=== PATIENT | male | born 1985 | race Two or more races ===

== ENCOUNTER 2016-10-02 16:07 | Emergency (ER) | payer OTHER ==
[2016-10-02 16:11] VITALS: BP 112/64; BMI 29.9
[2016-10-02] MEDS ORDERED: ACETAMINOPHEN 500 MG TABLET (FP) PO ONE (17:02)
[2016-10-02] MEDS ORDERED: ONDANSETRON *ODT* 4 MG TABLET SL ONE (17:03)
--- NOTE | 2016-10-02 17:05 | PDOC ---
History of Present Illness - General Chief Complaint: Cold Symptoms Stated Complaint: COLD SYMPTOMS Time Seen by Provider: 10/02/16 16:23 History Source: Patient Exam Limitations: No Limitations - History of Present Illness Initial Comments: 10/02/16 17:12 My chief complaint: Fever, generalized body aches, sore throat, nasal congestion or 3 days, nausea and vomiting today 10/02/16 17:41 History of present illness: Patient is a 31-year-old male with no significant medical history here today complaining of fever with intermittent body aches and sore throat with nasal congestion 3 days with nausea and vomiting once today. Patient denies any difficulty breathing or swallowing or any abdominal pain. Patient denies any recent travel or any sick contacts. Patient denies headache however has generalized body aches. His appetite has been decreased today is drinking fluids. 10/02/16 17:43 10/02/16 18:17 10/02/16 18:17 10/02/16 20:06 Timing/Duration: intermittent (for 3 days) Severity: moderate Associated Symptoms: reports: fever/chills (intermittent for 3 days ), nausea/ vomiting, other (sore throat) Past History - Past Medical History Allergies/Adverse Reactions: Allergies Allergy/AdvReac Type Severity Reaction Status Date / Time No Known Allergies Allergy Verified 10/02/16 16:10 Home Medications: Ambulatory Orders NK [No Known Home Medication] 10/02/16 - Psycho/Social/Smoking Cessation Hx Suicidal Ideation: No Smoking History: Never smoked Review of Systems - Review of Systems Able to Perform ROS?: Yes Constitutional: Yes: Chills, Fever HEENTM: Yes: Nose Congestion, Throat Pain Respiratory: No: Symptoms reported Cardiac (ROS): No: Symptoms Reported ABD/GI: Yes: Nausea, Vomiting (once today ) : No: Symptoms Reported Musculoskeletal: Yes: Other (generalized muscularskeletal pain ) Integumentary: No: Symptoms Reported Neurological: No: Symptoms reported *Physical Exam - Vital Signs Last Vital Signs Temp Pulse Resp BP Pulse Ox 102.9 F H 111 H 20 112/64 97 10/02/16 16:10 10/02/16 16:10 10/02/16 16:10 10/02/16 16:10 10/02/16 16:10 - Physical Exam General Appearance: Yes: Appropriately Dressed HEENT: positive: TMs Normal, Pharyngeal Erythema, Tonsillar Erythema (with no uvular deviation ), Nasal Congestion. negative: Tonsillar Exudate, Rhinorrhea, Sinus Tenderness Neck: negative: Lymphadenopathy (R), Lymphadenopathy (L) Respiratory/Chest: positive: Lungs Clear, Normal Breath Sounds. negative: Chest Tender, Respiratory Distress Cardiovascular: positive: Regular Rhythm, Regular Rate, S1, S2 Gastrointestinal/Abdominal: positive: Normal Bowel Sounds, Soft. negative: Tender, Organomegaly, Distended, Guarding, Rebound, Tenderness, Hepatomegaly, Spleenomegaly Integumentary: positive: Normal Color Neurologic: positive: Fully Oriented, Alert, Normal Response, Responsive ED Treatment Course - LABORATORY CBC & Chemistry Diagram: 10/02/16 18:20 10/02/16 18:20 Medical Decision Making - Medical Decision Making 10/02/16 17:43 Patient is a 31-year-old male with no significant medical history here today complaining of fever with intermittent body aches and sore throat with nasal congestion 3 days with nausea and vomiting once today. Patient denies any difficulty breathing or swallowing or any abdominal pain. Patient denies any recent travel or any sick contacts. Patient denies headache however has generalized body aches. His appetite has been decreased today is drinking fluids. r/o influenza A or B r/o strep tonsillitis PLAN: throat C & S rapid negative influenza A & B acetaminophen 1000 mg po now zofran 4 mg sl now 10/02/16 18:20 ibuprofen 600 mg po now cbc with diff cmp lactic acid ua Laboratory Tests 10/02/16 10/02/16 18:20 18:20 WBC 16.4 H RBC 4.77 Hgb 13.0 Hct 39.2 MCV 82.1 MCHC 33.2 RDW 13.7 Plt Count 265 MPV 7.5 Neutrophils % 86.3 H Lymphocytes % 9.4 Monocytes % 3.8 Eosinophils % 0.1 Basophils % 0.4 Anion Gap 10 Random Glucose 94 Laboratory Tests 10/02/16 10/02/16 10/02/16 18:20 18:20 18:20 Potassium 3.8 Anion Gap 10 BUN 16 Creatinine 1.1 Creat Clearance w eGFR > 60 Random Glucose 94 Lactic Acid 0.9 Calcium 8.8 Total Bilirubin 0.8 AST 32 ALT 43 Alkaline Phosphatase 74 Total Protein 7.3 Albumin 4.1 10/02/16 18:54 ibuprofen 600 mg po now 10/02/16 19:31 temp is 99.4 10/02/16 19:31 10/02/16 20:02 Feeling much better will discharge patient to home with instructions to come back if symptoms worsen or new symptoms develop And to take acetaminophen every 4 hours and ibuprofen every 6 hours if temp as directed 10/02/16 20:06 Laboratory Tests 10/02/16 18:40 Urine Color Ltyellow Urine Appearance Clear Urine pH 5.0 Ur Specific [place] Pending Urine Protein Negative Urine Glucose (UA) Negative Urine Ketones Negative Urine Blood Negative Urine Nitrite Negative Urine Bilirubin Negative Urine Urobilinogen Negative Ur Leukocyte Esterase Negative 10/02/16 23:10 *DC/Admit/Observation/Transfer Diagnosis at time of Disposition: Viral syndrome - Discharge Dispostion Disposition: HOME Condition at time of disposition: Stable - Referrals Referrals: Christopher Ramirez [Primary Care Provider] - - Patient Instructions Additional Instructions: Give a lot a fluids and rest Return to emergency room if symptoms worsen or new symptoms develop Take acetaminophen as needed as directed by manufacture every 4 hours if fever and ibuprofen as needed as directed by manufacture every 6 hours as needed Patient voiced understanding of discharge instructions and all questions were answered Jose mucho lquido y descansar Regreso a la brown de emergencias si los sntomas empeoran o se desarrollan nuevos sntomas. [place] acetaminofeno segn sea necesario segn las instrucciones de la fabrica cada 4 horas si fiebre e ibuprofeno alpesh sea necesario segn las indicaciones de la fabricacin cada 6 horas segn sea necesario Comprensin del paciente sobre las instrucciones de jinny y todas las preguntas fueron contestadas
[2016-10-02] MEDS ORDERED: ACETAMINOPHEN 500 MG TABLET (FP) ONE (17:07)
[2016-10-02] MEDS ORDERED: ONDANSETRON *ODT* 4 MG TABLET ONE (17:08)
[2016-10-02 17:51] VITALS: PULSE 90
[2016-10-02] MEDS ORDERED: IBUPROFEN 600 MG TABLET (FP) PO ONE ×2 (18:16→18:17)
[2016-10-02 18:30] LABS: BASOPHIL 0.4 % (0-2.0); EOSINOPHIL 0.1 % (0-4.5); MCH 27.3 pg (25.7-33.7); MCHC 33.2 g/dl (32.0-35.9); MEAN CELL VOLUME 82.1 fl (80-96); MEAN PLT VOLUME 7.5 fl (7.5-11.1); NEUTROPHILS 86.3 % (42.8-82.8); PLATELET COUNT 265 K/MM3 (134-434); RDW 13.7 % (11.9-15.9); WHITE BLOOD COUNT 16.4 K/mm3 (4.0-10.0)
[2016-10-02 18:47] LABS: CALCIUM 8.8 mg/dL (8.5-10.1); COCKROFT - GAULT 112.36; CREATININE 1.1 mg/dL (0.7-1.3)
[2016-10-02 18:51] LABS: ALBUMIN 4.1 g/dl (3.4-5.0); ALK PHOS 74 U/L (45-117); ANION GAP 10 (8-16); BILIRUBIN,TOTAL 0.8 mg/dL (0.2-1.0); CALCIUM 8.8 mg/dL (8.5-10.1); CO2 24 mmol/L (21-32); COCKROFT - GAULT 112.36; CREATININE 1.1 mg/dL (0.7-1.3); GLUCOSE,RANDOM 92 mg/dL (74-106); SGOT/AST 32 U/L (15-37); SGPT/ALT 43 U/L (12-78); TOT PROT 7.3 g/dl (6.4-8.2)
[2016-10-02 19:00] LABS: URINE APPEARANCE CLEAR; URINE BILIRUBIN NEGATIVE (NEGATIVE); URINE BLOOD NEGATIVE (NEGATIVE); URINE COLOR LTYELLOW; URINE GLUCOSE (UA) NEGATIVE (NEGATIVE); URINE KETONE NEGATIVE (NEGATIVE); URINE LEUK ESTERASE NEGATIVE (NEGATIVE); URINE NITRITE NEGATIVE (NEGATIVE); URINE PROTEIN NEGATIVE (NEGATIVE); URINE UROBILINOGEN NEGATIVE E.U./dl (0.2-1.0)
[2016-10-02 19:21] VITALS: TEMP 99.4
== END 2016-10-02 20:23 | disposition home or self-care (01) ==
LOC: JERFT 16:07
DX: B34.9 Viral infection, unspecified (principal)
CPT/HCPCS: 36415; 80048; 80053; 81003; 83605; 85025; 87070; 87430; 87804; 99281-25

== ENCOUNTER 2017-07-26 08:19 | Emergency (ER) | payer OTHER ==
[2017-07-26 08:27] VITALS: BP 133/71; PULSE 64; TEMP 98; BMI 32.3
[2017-07-26 10:09] LABS: BASO % 0.8 % (0-2.0); EOS % 3.1 % (0-4.5); HEMATOCRIT 40.2 % (35.4-49); HEMOGLOBIN 13.4 GM/dL (11.7-16.9); LYMPH % 26.2 % (8-40); MCH 27.8 pg (25.7-33.7); MCHC 33.4 g/dl (32.0-35.9); MEAN CELL VOLUME 83.2 fl (80-96); MEAN PLT VOLUME 7.5 fl (7.5-11.1); MONO % 10.3 % (3.8-10.2); NEUT % 59.6 % (42.8-82.8); PLATELET COUNT 273 K/MM3 (134-434); RBC 4.84 M/mm3 (4.00-5.60); WHITE BLOOD COUNT 9.1 K/mm3 (4.0-10.0)
[2017-07-26] MEDS ORDERED: KETOROLAC TROMETHAMINE 60 MG/2 ML VIAL IM ONE (10:27)
--- NOTE | 2017-07-26 10:27 | PDOC ---
History of Present Illness - General Chief Complaint: Pain Stated Complaint: JOINT PAIN Time Seen by Provider: 07/26/17 08:57 History Source: Patient Exam Limitations: No Limitations - History of Present Illness Initial Comments: 07/26/17 10:22 Patient is a 32-year-old male denies any significant medical history, currently no travel, presents with joint pain to hands and knees for 2 weeks. Patient reports fever last night tactile only. Denies any chest pain or shortness of breath, no sore throat, no ear pain. No runny nose. Denies any recent tick bites or bug bites. Does work outside in construction. Has not attempted to take any medication. Past Medical History: [Denies]. Allergies: No known allergies Medications: None Family History: Non-contributory Social History: Denies smoking, alcohol use, or IVDU Vital signs on arrival are [notable for pulse of 64] Review of Systems GENERAL/CONSTITUTIONAL: [No fever or chills. No weakness. No weight change.] HEAD, EYES, EARS, NOSE AND THROAT: [No change in vision. No ear pain or discharge. No sore throat. ] CARDIOVASCULAR: [No chest pain or shortness of breath.] RESPIRATORY: [No cough, wheezing, or hemoptysis.] GASTROINTESTINAL: [No nausea, vomiting, diarrhea or constipation. No rectal bleeding.] GENITOURINARY: [No dysuria, frequency, or change in urination.] MUSCULOSKELETAL: [Joint pain to hands and knees, no neck or back pain.] SKIN : [No rash or easy bruising.] NEUROLOGIC: [No headache, vertigo, loss of consciousness, or loss of sensation.] PSYCHIATRIC: [No depression or anxiety.] ENDOCRINE: [No increased thirst. No abnormal weight change.] HEMATOLOGIC/LYMPHATIC: [No anemia, easy bleeding, or history of blood clots.] ALLERGIC/IMMUNOLOGIC: [No hives or skin allergy. No latex allergy.] Physical Exam: GENERAL: [The patient is awake, alert, and fully oriented, in no acute distress. ] EYES: [Pupils equal, round and reactive to light, extraocular movements intact, sclera anicteric, conjunctiva clear.] ENT: [Ears normal, nares patent, oropharynx clear without exudates. Moist mucous membranes. No uvula deviation] NECK: [Normal range of motion, supple without lymphadenopathy, JVD, or masses.] LUNGS: [Breath sounds equal, clear to auscultation bilaterally. No wheezes, and no crackles.] HEART: [Regular rate and rhythm, normal S1 and S2 without murmur, rub or gallop. ] ABDOMEN: [Soft, nontender, normoactive bowel sounds. No guarding, no rebound. No masses. No bruising or abrasions] MUSCULOSKELETAL: [Normal range of motion, there is edema noted to thenar surface of bilateral hands, No clubbing or cyanosis. No cords, erythema, or tenderness. No CVA Tenderness ] NEUROLOGICAL: [Cranial nerves II through XII grossly intact. Normal speech, normal gait.] SKIN: [Warm, Dry, normal turgor, no rashes or lesions noted.] Past History - Past Medical History Allergies/Adverse Reactions: Allergies Allergy/AdvReac Type Severity Reaction Status Date / Time No Known Allergies Allergy Verified 07/26/17 08:24 Home Medications: Ambulatory Orders Naproxen [Naprosyn] 500 mg PO BID #30 tablet 07/26/17 COPD: No Other medical history: DENIES. - Suicide/Smoking/Psychosocial Hx Smoking History: Never smoked *Physical Exam - Vital Signs Last Vital Signs Temp Pulse Resp BP Pulse Ox 98 F 64 19 133/71 98 07/26/17 08:24 07/26/17 08:24 07/26/17 08:24 07/26/17 08:24 07/26/17 08:24 ED Treatment Course - LABORATORY CBC & Chemistry Diagram: 07/26/17 09:55 07/26/17 09:55 - ADDITIONAL ORDERS Additional order review: 07/26/17 09:55 Influenza Types A,B Antigen (ASHLEY) - Preliminary Nasopharyngeal Swab - Preliminary 07/26/17 09:55 RBC 4.84 MCV 83.2 MCHC 33.4 RDW 14.0 MPV 7.5 Neutrophils % 59.6 D Lymphocytes % 26.2 D Monocytes % 10.3 H D Eosinophils % 3.1 D Basophils % 0.8 Medical Decision Making - Medical Decision Making 07/26/17 10:27 A/P: Patient with joint pains for 2 weeks reports fever last night however afebrile upon arrival, no medication prior to arrival. I will give patient Toradol 60 mg IM, CBC, CMP, ESR, Lyme sent. 07/26/17 11:13 Laboratory Results - last 24 hr 07/26/17 07/26/17 09:55 09:55 WBC 9.1 D RBC 4.84 Hgb 13.4 Hct 40.2 MCV 83.2 MCH 27.8 MCHC 33.4 RDW 14.0 Plt Count 273 MPV 7.5 Neutrophils % 59.6 D Lymphocytes % 26.2 D Monocytes % 10.3 H D Eosinophils % 3.1 D Basophils % 0.8 Sodium 139 Potassium 4.4 Chloride 108 H Carbon Dioxide 23 Anion Gap 8 BUN 12 Creatinine 0.8 D Creat Clearance w eGFR > 60 Random Glucose 91 Calcium 8.9 Total Bilirubin 0.3 D AST 69 H D ALT 139 H D Alkaline Phosphatase 138 H D Total Protein 7.1 Albumin 3.6 07/26/17 11:13 Patient with no elevated white count, liver enzymes are mildly elevated. Patient feels better after Toradol injection, ESR is still pending patient will be referred to Dr. Silvestre for further workup, which can be performed as outpatient. ESR and Lyme are pending. I will discharge on anti-inflammatories, with strict follow-up. *DC/Admit/Observation/Transfer Diagnosis at time of Disposition: Joint pain Qualifiers: Joint pain location: unspecified Qualified Code(s): M25.50 - Pain in unspecified joint - Discharge Dispostion Disposition: HOME Condition at time of disposition: Stable Admit: No - Prescriptions Prescriptions: Naproxen [Naprosyn] 500 mg PO BID #30 tablet - Referrals Referrals: Christopher Ramirez [Primary Care Provider] - Dilshad Silvestre MD [Staff Physician] - - Patient Instructions Printed Discharge Instructions: DI for Joint Pain Additional Instructions: Please call today to make an appointment with Dr. Silvestre Any fever, increased pain, or any other concerns return to ER A copy of your labs were given to you to present to [facility] - Post Discharge Activity Forms/Work/School Notes: Back to Work
[2017-07-26 10:30] LABS: CALCIUM 8.9 mg/dL (8.5-10.1); CHLORIDE 108 mmol/L (98-107); POTASSIUM 4.4 mmol/L (3.5-5.1); SODIUM 139 mmol/L (136-145)
[2017-07-26] MEDS ORDERED: KETOROLAC TROMETHAMINE 60 MG/2 ML VIAL ONE (10:35)
[2017-07-26 10:36] LABS: ALBUMIN 3.6 g/dl (3.4-5.0); ALK PHOS 138 U/L (45-117); ANION GAP 8 (8-16); BILIRUBIN,TOTAL 0.3 mg/dL (0.2-1.0); BLOOD UREA NITROGEN 12 mg/dL (7-18); CO2 23 mmol/L (21-32); CREATININE 0.8 mg/dL (0.7-1.3); GLUCOSE,RANDOM 91 mg/dL (74-106); SGOT/AST 69 U/L (15-37); SGPT/ALT 139 U/L (12-78); TOT PROT 7.1 g/dl (6.4-8.2)
[2017-07-26 11:38] LABS: ERYTHROCYTE SEDIMENTATION RATE 13 mm/hr (0-10)
== END 2017-07-26 11:36 | disposition home or self-care (01) ==
LOC: JERFT 08:19
PROC: 3E0233Z Introduction of Anti-inflammatory into Muscle, Percutaneous Approach (ICD-10-PCS; principal; 2017-07-26)
DX: M25.562 Pain in left knee (principal); M25.561 Pain in right knee; M79.641 Pain in right hand; M79.642 Pain in left hand
CPT/HCPCS: 36415; 80053; 85025; 85651; 86618; 87804; 96372; 99281-25

== ENCOUNTER 2021-06-06 17:39 | Emergency (ER) | payer OTHER ==
[2021-06-06 17:53] VITALS: BP 148/96; PULSE 61; TEMP 97.5; BMI 32.3
[2021-06-06] MEDS ORDERED: DEXAMETHASONE LIQUID 0.5 MG/5 ML PO ONE (18:28)
[2021-06-06] MEDS ORDERED: FAMOTIDINE 20 MG TABLET PO ONE (18:29)
[2021-06-06] MEDS ORDERED: FAMOTIDINE 20 MG TABLET ONE (18:32)
[2021-06-06] MEDS ORDERED: DEXAMETHASONE SOD PHOSPHATE 10 MG/1 ML VIAL ONE (18:32)
== END 2021-06-06 20:39 | disposition home or self-care (01) ==
LOC: JERFT 17:39
DX: T78.3XXA Angioneurotic edema, initial encounter (principal)
CPT/HCPCS: 99283-25

== ENCOUNTER 2021-10-14 17:41 | Emergency (ER) | payer OTHER ==
[2021-10-14 17:55] VITALS: BP 117/75; PULSE 89; TEMP 98.9; BMI 33.9
[2021-10-14] MEDS ORDERED: IBUPROFEN 600 MG TABLET (FP) PO ONE ×2 (19:18→19:22)
== END 2021-10-14 19:44 | disposition home or self-care (01) ==
LOC: JER 17:41
DX: B34.9 Viral infection, unspecified (principal)
CPT/HCPCS: 0241U-QW; 99283-25

== ENCOUNTER 2023-04-04 16:01 | Emergency (ER) | payer OTHER ==
[2023-04-04 16:21] VITALS: BP 162/92; PULSE 93; RESP 18; TEMP 98.7; BMI 34.3
[2023-04-04] MEDS ORDERED: SODIUM CHLORIDE 0.9% 500 ML INFUS.BAG IV ONE (16:40)
[2023-04-04] MEDS ORDERED: FAMOTIDINE 20 MG/50 ML IVPB 20 MG/50 ML MG IVPB ONE ×2 (16:40→17:03)
[2023-04-04] MEDS ORDERED: ACETAMINOPHEN 1000 MG/100 ML BAG IVPB ONE (16:40)
[2023-04-04] MEDS ORDERED: ONDANSETRON 4 MG/2 ML VIAL IVPUSH ONE (16:40)
[2023-04-04] MEDS ORDERED: ACETAMINOPHEN INJECTION 100 ML IVPB ONE ×2 (17:02→17:44)
[2023-04-04] MEDS ORDERED: ONDANSETRON 4 MG/2 ML VIAL ONE (17:03)
[2023-04-04 17:15] LABS: BASO % 0.4 % (0-2.0); HEMATOCRIT 47.6 % (35.4-49); HEMOGLOBIN 16.1 GM/dL (11.7-16.9); LYMPH % 12.2 % (8-40); MCH 27.2 pg (25.7-33.7); MCHC 33.7 g/dl (32.0-35.9); MEAN CELL VOLUME 80.7 fl (80-96); MEAN PLT VOLUME 7.2 fl (7.5-11.1); NEUT % 77.4 % (42.8-82.8); PLATELET COUNT 283 10^3/uL (134-434); WHITE BLOOD COUNT 14.9 K/mm3 (4.0-10.0)
[2023-04-04 17:34] LABS: POTASSIUM 4.6 mmol/L (3.5-5.1)
[2023-04-04 17:36] LABS: CALCIUM 9.9 mg/dL (8.5-10.1)
[2023-04-04 17:37] LABS: ALBUMIN 4.3 g/dl (3.4-5.0); BLOOD UREA NITROGEN 13.9 mg/dL (7-18)
[2023-04-04 17:40] LABS: CREATININE 1.2 mg/dL (0.55-1.3)
[2023-04-04 17:42] LABS: BILIRUBIN,TOTAL 0.5 mg/dL (0.2-1); TOT PROT 8.9 g/dl (6.4-8.2)
== END 2023-04-04 18:54 | disposition home or self-care (01) ==
LOC: JER 16:01
PROC: 3E033GC Introduction of Other Therapeutic Substance into Peripheral Vein, Percutaneous Approach (ICD-10-PCS; principal; 2023-04-04)
PROC: 3E033GC Introduction of Other Therapeutic Substance into Peripheral Vein, Percutaneous Approach (ICD-10-PCS; 2023-04-04)
PROC: 3E033NZ Introduction of Analgesics, Hypnotics, Sedatives into Peripheral Vein, Percutaneous Approach (ICD-10-PCS; 2023-04-04)
DX: R11.2 Nausea with vomiting, unspecified (principal); R19.7 Diarrhea, unspecified; R10.13 Epigastric pain; R50.9 Fever, unspecified; K80.20 Calculus of gallbladder without cholecystitis without obstruction; K29.70 Gastritis, unspecified, without bleeding; R74.01 Elevation of levels of liver transaminase levels; Z20.822 Contact with and (suspected) exposure to COVID-19
CPT/HCPCS: 0241U-QW; 36415; 74177-TC; 80053; 83690; 83735; 85025; 99285-25; Q9967

== ENCOUNTER 2023-12-17 07:54 | Emergency (ER) | payer OTHER ==
[2023-12-17 08:07] VITALS: TEMP 97.9; BMI 32.4
[2023-12-17] MEDS ORDERED: ACETAMINOPHEN INJECTION 100 ML ONE (08:38)
[2023-12-17] MEDS ORDERED: MAG HYDROX/AL HYDROX/SIMETH 30 ML UNIT-DOSE CUP ONE (08:38)
[2023-12-17] MEDS ORDERED: ONDANSETRON 4 MG/2 ML VIAL ONE (08:38)
[2023-12-17] MEDS ORDERED: FAMOTIDINE 20 MG/50 ML IVPB 20 MG/50 ML MG IVPB ONE (08:39)
[2023-12-17] MEDS: ACETAMINOPHEN 1000 MG/100 ML BAG IVPB ONE (09:03)
[2023-12-17] MEDS: SODIUM CHLORIDE 0.9% 500 ML INFUS.BAG IV ONE (09:03)
[2023-12-17] MEDS: ONDANSETRON 4 MG/2 ML VIAL IVPB ONE (09:04)
[2023-12-17] MEDS: MAG HYDROX/AL HYDROX/SIMETH 30 ML UNIT-DOSE CUP PO ONE (09:04)
[2023-12-17] MEDS: FAMOTIDINE 20 MG/50 ML IVPB 20 MG/50 ML MG IVPB ONE (09:04)
[2023-12-17 09:08] LABS: BASO % 0.5 % (0-2.0); EOS % 0.8 % (0-4.5); HEMOGLOBIN 14.2 GM/dL (11.7-16.9); LYMPH % 18.3 % (8-40); MCH 27.7 pg (25.7-33.7); MCHC 33.1 g/dl (32.0-35.9); MEAN CELL VOLUME 83.9 fl (80-96); MEAN PLT VOLUME 7.8 fl (7.5-11.1); MONO % 7.1 % (3.8-10.2); NEUT % 73.3 % (42.8-82.8); PLATELET COUNT 249 10^3/uL (134-434); RBC 5.13 M/mm3 (4.00-5.60); RDW 14.8 % (11.9-15.9); WHITE BLOOD COUNT 11.2 K/mm3 (4.0-10.0)
[2023-12-17 09:33] LABS: POTASSIUM 4.3 mmol/L (3.5-5.1)
[2023-12-17 09:34] LABS: CALCIUM 9.6 mg/dL (8.5-10.1)
[2023-12-17 09:38] LABS: CREATININE 1.1 mg/dL (0.55-1.3)
[2023-12-17 09:40] LABS: BILIRUBIN,TOTAL 0.4 mg/dL (0.2-1); TOT PROT 7.8 g/dl (6.4-8.2)
[2023-12-17] MEDS ORDERED: morphine SULFATE 4 MG/ML VIAL ONE (11:04)
[2023-12-17] MEDS: morphine CARPU-JECT 8 MG/1 ML DISP.SYRIN IVPUSH ONE (11:11)
[2023-12-17 11:12] VITALS: BP 127/85; PULSE 52; RESP 18
== END 2023-12-17 13:03 | disposition home or self-care (01) ==
LOC: JER 07:54
PROC: 3E033GC Introduction of Other Therapeutic Substance into Peripheral Vein, Percutaneous Approach (ICD-10-PCS; principal; 2023-12-17)
PROC: 3E033NZ Introduction of Analgesics, Hypnotics, Sedatives into Peripheral Vein, Percutaneous Approach (ICD-10-PCS; 2023-12-17)
PROC: 3E033NZ Introduction of Analgesics, Hypnotics, Sedatives into Peripheral Vein, Percutaneous Approach (ICD-10-PCS; 2023-12-17)
PROC: 3E033GC Introduction of Other Therapeutic Substance into Peripheral Vein, Percutaneous Approach (ICD-10-PCS; 2023-12-17)
DX: R10.84 Generalized abdominal pain (principal); R11.2 Nausea with vomiting, unspecified; R68.83 Chills (without fever)
CPT/HCPCS: 36415; 76705-TC; 80053; 83690; 85025; 99284-25; J0131

== ENCOUNTER 2023-12-18 05:07 | Emergency (ER) | payer OTHER ==
[2023-12-18 05:14] VITALS: BMI 32.3
[2023-12-18] MEDS ORDERED: FAMOTIDINE 20 MG/50 ML IVPB 20 MG/50 ML MG IVPB ONE (06:17)
[2023-12-18] MEDS ORDERED: SUCRALFATE 1 GM TABLET (FP) ONE (06:17)
[2023-12-18] MEDS ORDERED: MAG HYDROX/AL HYDROX/SIMETH 30 ML UNIT-DOSE CUP ONE (06:17)
[2023-12-18] MEDS ORDERED: ONDANSETRON 4 MG/2 ML VIAL ONE (06:17)
[2023-12-18] MEDS: FAMOTIDINE 20 MG/50 ML IVPB 20 MG in PREMIX 50 IVPB ONE (06:25)
[2023-12-18] MEDS: SUCRALFATE 1 GM TABLET (FP) PO ONE (06:25)
[2023-12-18] MEDS: MAG HYDROX/AL HYDROX/SIMETH -MYLANTA- ORAL SUSPENSION PO ONE (06:25)
[2023-12-18] MEDS: ONDANSETRON 4 MG/2 ML VIAL IVPB ONE (06:25)
[2023-12-18 06:42] LABS: BASO % 0.3 % (0-2.0); EOS % 2.6 % (0-4.5); HEMOGLOBIN 13.7 GM/dL (11.7-16.9); MCHC 33.6 g/dl (32.0-35.9); MEAN CELL VOLUME 83.3 fl (80-96); MEAN PLT VOLUME 7.9 fl (7.5-11.1); MONO % 9.1 % (3.8-10.2); PLATELET COUNT 233 10^3/uL (134-434); RBC 4.92 M/mm3 (4.00-5.60); RDW 15.3 % (11.9-15.9); WHITE BLOOD COUNT 12.4 K/mm3 (4.0-10.0)
[2023-12-18 07:02] LABS: POTASSIUM 4.1 mmol/L (3.5-5.1)
[2023-12-18 07:04] LABS: ALBUMIN 3.7 g/dl (3.4-5.0); BLOOD UREA NITROGEN 14.2 mg/dL (7-18); CALCIUM 9.3 mg/dL (8.5-10.1)
[2023-12-18 07:09] LABS: BILIRUBIN,TOTAL 0.5 mg/dL (0.2-1)
[2023-12-18] MEDS ORDERED: ACETAMINOPHEN INJECTION 100 ML ONE (07:31)
[2023-12-18] MEDS: ACETAMINOPHEN 1000 MG/100 ML BAG IVPB ONE (07:32)
[2023-12-18] MEDS: morphine CARPU-JECT 8 MG/1 ML DISP.SYRIN IVPUSH ONE (09:26)
[2023-12-18 10:05] VITALS: BP 146/76; PULSE 57; RESP 16; TEMP 98
== END 2023-12-18 10:06 | disposition home or self-care (01) ==
LOC: JER 05:07
PROC: 3E033GC Introduction of Other Therapeutic Substance into Peripheral Vein, Percutaneous Approach (ICD-10-PCS; principal; 2023-12-18)
PROC: 3E033GC Introduction of Other Therapeutic Substance into Peripheral Vein, Percutaneous Approach (ICD-10-PCS; 2023-12-18)
PROC: 3E033NZ Introduction of Analgesics, Hypnotics, Sedatives into Peripheral Vein, Percutaneous Approach (ICD-10-PCS; 2023-12-18)
DX: K52.9 Noninfective gastroenteritis and colitis, unspecified (principal); K80.00 Calculus of gallbladder with acute cholecystitis without obstruction; R10.13 Epigastric pain; K59.00 Constipation, unspecified
CPT/HCPCS: 36415; 71045-TC-FY; 74177-TC; 80053; 83690; 84484; 85025; 93005; 93010; 99285-25; J0131; Q9967